=== PATIENT | male | born 1995 ===

== ENCOUNTER 2019-03-05 19:39 | Emergency (ER) | payer SELFPAY ==
[2019-03-05 20:08] VITALS: BP 138/81
--- NOTE | 2019-03-05 20:29 | UC ---
Lower Extremity/Ankle HPI - HPI Summary HPI Summary: 23-year-old female who was playing soccer approximately 3 weeks ago when he rolled his right ankle. He has been self treating however states he continues to have right ankle pain especially when he is extending his right foot. He has been ambulatory throughout the day he's an [employer] at [employer] and states that the end of the day he has some ankle swelling however it has resolved by morning time every day. - History of Current Complaint Chief Complaint: UCLowerExtremity Stated Complaint: ANKLE PAIN Time Seen by Provider: 03/05/19 20:29 Hx Obtained From: Patient Onset/Duration: Sudden Onset Severity Initially: Mild Severity Currently: Mild Pain Intensity: 1 Aggravating Factor(s): Ambulation Alleviating Factor(s): Rest, Elevation Able to Bear Weight: Yes - Allergies/Home Medications Allergies/Adverse Reactions: Allergies Allergy/AdvReac Type Severity Reaction Status Date / Time No Known Allergies Allergy Verified 03/05/19 20:08 Home Medications: Home Medications NK [No Home Medications Reported] 03/05/19 [History Confirmed 03/05/19] PMH/Surg Hx/FS Hx/Imm Hx Previously Healthy: Yes - Surgical History Surgical History: None - Family History Known Family History: Positive: Non-Contributory - Social History Occupation: Student Alcohol Use: Rare Substance Use Type: None Smoking Status (MU): Never Smoked Tobacco Review of Systems All Other Systems Reviewed And Are Negative: Yes Motor: Positive: Negative Neurovascular: Positive: Negative Musculoskeletal: Positive: Edema - Patient states he has some ankle swelling at the end of the day after work. He has full range of motion of his foot and ankle however pain when he fully extends his foot. Is Patient Immunocompromised?: No Physical Exam Triage Information Reviewed: Yes Appearance: Well-Appearing, No Pain Distress, Well-Nourished Vital Signs: Initial Vital Signs Temp 98.6 F 03/05/19 20:01 Pulse 81 03/05/19 20:01 Resp 12 03/05/19 20:01 BP 138/81 03/05/19 20:01 Pulse Ox 100 03/05/19 20:01 Vital Signs Reviewed: Yes Musculoskeletal: Positive: Strength Intact, ROM Intact, Other: - Foot and ankle are nontender on palpation, no swelling, erythema, deformity or bruising. The base of the fifth and first metatarsals are nontender on palpation. Neurological: Positive: Alert, Muscle Tone Normal - Achilles is intact. Psychological Exam: Normal Skin Exam: Normal Lower Extremity Course/Dx - Course Course Of Treatment: Right ankle x-ray: Negative as interpreted by myself and Dr. Chapa. Radiologist reading 03/06/2019REPORT AND IMPRESSION: #. Negative for fracture, osteochondral lesion, or articular malalignment. Mild soft tissue swelling over the lateral malleolus. - Differential Dx/Diagnosis Provider Diagnosis: Ankle sprain Discharge - Sign-Out/Discharge Documenting (check all that apply): Patient Departure All imaging exams completed and their final reports reviewed: Yes - read as negative by myself and Dr. Chapa on 03/05/2019 area and radiologist's reading was negative on 03/06/2019. - Discharge Plan Condition: Fair Disposition: HOME Patient Education Materials: Ankle Sprain (DC) Referrals: Casa Wagner MD [Medical Doctor] - No Primary Care Phys,NOPCP [Primary Care Provider] - Additional Instructions: Wear the Jorge A bandage for comfort especially on days when you work. Follow-up with the orthopedist if no improvement in another 4-5 days. - Billing Disposition and Condition Condition: FAIR Disposition: Home
== END 2019-03-05 21:15 | disposition home or self-care (01) ==
LOC: UCEAST 19:39
DX: S93.401A Sprain of unspecified ligament of right ankle, initial encounter (principal); X58.XXXA Exposure to other specified factors, initial encounter; Y93.66 Activity, soccer; Y92.322 Soccer field as the place of occurrence of the external cause; Y99.8 Other external cause status
CPT/HCPCS: 99202; G0463